=== PATIENT | male | born 2005 | race Caucasian/White ===

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

== ENCOUNTER 2025-03-01 08:22 | Emergency (ER) | payer OTHER, SELFPAY ==
--- NOTE | ~2025-03-01 | XR_ITS ---
EXAMINATION: XR CHEST CLINICAL INFORMATION: chest pain COMPARISON: 04/27/2020. TECHNIQUE: 2 views of the chest were obtained. FINDINGS: The cardiac, hilar, and mediastinal contours are normal. The lungs are clear bilaterally. There is no pneumothorax or pleural effusion. There is no focal osseous or soft tissue abnormality. XR/XR chest 2V IMPRESSION: Normal chest. Electronically signed by: Kushal Morales MD 03/01/2025 09:33 AM EDT
--- NOTE | 2025-03-01 08:24 | ECG_ITS ---
Test Reason : CP Blood Pressure : */* mmHG Vent. Rate : 77 BPM Atrial Rate : 77 BPM P-R Int : 134 ms QRS Dur : 88 ms QT Int : 364 ms P-R-T Axes : 13 55 20 degrees QTcB Int : 411 ms Normal sinus rhythm Normal ECG When compared with ECG of 26-Apr-2020 21:47, ST no longer depressed in Lateral leads Referred By: Generic ED Physician Electronically Signed By: LISY RAPHAEL
[2025-03-01 08:53] VITALS: BP 137/100; PULSE 75; RESP 12; TEMP 36.8; O2SAT 99; BMI 26.9
--- NOTE | 2025-03-01 08:57 | ED_ITS ---
HPI - General Adult General Chief complaint: Arrhythmia/Palpitations Stated complaint: Chest pain, heart palpitations Time Seen by Provider: 03/01/25 08:52 Source: patient and family (patient's mother) Mode of arrival: ambulatory Limitations: no limitations History of Present Illness ED Provider: Korin Mercado PA-C HPI narrative: Patient is a 19 year old assigned male at with a history of SVT presenting to the emergency department with concerns of intermittent chest pain and palpitations. He reports experiencing a 10 to 15 minute episode of left-sided chest pain and palpitations around 9 PM last night that resolved without any intervention. He reports associated dizziness, sweating and SOB that has also resolved. He reports experiencing these episodes of chest pain and palpitations that resolve spontaneously intermittently, sometimes once per month. He reports a history of cardiac issues and has experienced similar symptoms in the past for which he was evaluated by a oxygraph operator. He is not currently followed by a clinical research specialist. He denies current dizziness, headaches, changes to vision, chest pain, palpitations, shortness of breath, nausea/vomiting, fever/chills, or abdominal pain. Related Data Home Medications ?Medication ?Instructions ?Recorded ?Confirmed No Known Home Meds 03/17/22 03/17/22 Allergies Allergy/AdvReac Type Severity Reaction Status Date / Time No Known Allergies Allergy Verified 03/01/25 08:58 Review of Systems 2 Constitutional: Constitutional: Reports as per HPI Eyes: Eyes: Reports as per HPI ENT: Reports as per HPI Cardiovascular: Cardiovascular: Reports as per HPI Respiratory: Respiratory: Reports as per HPI Gastrointestinal: Gastrointestinal: Reports as per HPI Genitourinary: Genitourinary: Reports as per HPI Musculoskeletal: Musculoskeletal: Reports as per HPI Integumentary/Breasts: Skin/Breast: Reports as per HPI Neurologic: Reports as per HPI Psychiatric: Psychiatric: Reports as per HPI Endocrine: Endocrine: Reports as per HPI Hematologic/Lymphatic: Hematologic/Lymphatic: Reports as per HPI Allergic/Immunologic: Allergic/Immunologic: Reports as per HPI [facility] Past Medical History Attestation statement: The following information was validated with the patient. (all information validated with the patient's mother) Source: old records reviewed, obtained from family (patient's mother provided additional history and confirmed the history provided by the patient. ) and nursing notes reviewed Social History Social History Alcohol intake: current Alcohol intake frequency: 0-2 drinks per day Alcohol type: hard liquor Smoked in Last 30 Days: No Use of substances other than those prescribed or required for medical reasons: No Advance Directives: No Advance Directives Information Provided: No Do you have a plan to hurt others: No Plan Physical Exam ED Vital Signs: Vital Signs - 24 hr 03/01/25 08:53 03/01/25 09:01 03/01/25 11:41 Temperature 98.3 F 98.3 F 97.5 F Pulse Rate 75 75 66 Respiratory Rate 12 12 19 Blood Pressure 137/100 H 137/100 H 141/96 H Pulse Oximetry 99 99 100 Oxygen Delivery Method Room Air Room Air Room Air 03/01/25 12:33 Temperature 0 F L Pulse Rate 71 Respiratory Rate 18 Blood Pressure 131/86 Pulse Oximetry 97 Oxygen Delivery Method Room Air BMI result Body Mass Index 26.9 Const General: cooperative, no acute distress, alert and awake Nutritional Appearance: well nourished Orientation/consciousness: patient oriented x3 HENMT Head: Yes normal to inspection and Yes atraumatic Ears: hearing grossly normal bilaterally and external ears normal General nose exam: Normal external nose present, no nasal discharge noted and no epistaxis Face and sinus: Yes normal facial exam, No abrasion and No laceration Mouth: Normal oral and palatal mucosa present, no drooling and no muffled voice Eyes General: appearance normal, both eyes and all related structures Periorbital: periorbital findings normal Eyelids: Yes eyelids normal Conjunctivae: conjunctivae normal Pupils: Equal, round and reactive pupils present EOM: EOMs intact bilaterally Neck Neck: Yes normal visual inspection and Yes full ROM Resp Effort & Inspection: normal respiratory effort and able to speak in complete sentences Auscultation: clear to auscultation bilaterally Cardio Rate: regular rate Rhythm: regular rhythm Neuro General: patient oriented x3, moves all extremities and CN's II-XI intact bilaterally Cranial nerves: Yes Equal, round and reactive pupils present Cognition (Neuro): normal cognition Extrem General: Yes normal to inspection, Yes full ROM and Yes capillary refill normal Psych Appearance: grossly normal Mental Status: mental status grossly normal Affect: normal affect Attitude: cooperative Thought process: Normal thought process present Thought content: Normal thought content present Insight: Good insight present (Psych) Procedures Procedure Narrative Procedure Narrative: EMERGENCY ULTRASOUND INTERPRETATION-Limited Echocardiography This study was ordered, performed, and interpreted by myself. The study reveals: Impression: NORMAL LV FUNCTION, NO RV DYSFUNCTION, NO PERICARDIAL EFFUSION, no gross structural abnormalities] Emergent Cardiac for Indication: Views Used: PLAX, PSSA, A4, SX, IVC Pericardial Effusion/Tamponade Findings: NONE RV Dilation (> LV diam in 4ch apical): NONE Global LV Fxn: NORMAL IVC Dilation and Resp Variation: NORMAL Performed by: MD Jerrell Images were stored CPT:31869 Medical Decision Making Medical Decision Making MDM Narrative: Patient is a 19 year old assigned male at with a history of SVT presenting to the emergency department with concerns of intermittent chest pain and palpitations. Patient's physical exam was unremarkable. Patient's blood work was unremarkable. Patient's EKG was unremarkable. Patient's chest x-ray showed no acute process. I performed a bed side echocardiogram with my attending physician, Dr. Yogesh Allan, as noted in the procedure note. Echocardiogram was reassuring for no acute process. I explained my physical exam findings as well as all test results to the patient and the patient's mother. I answered all questions asked by the patient and the patient's mother. I am suspicious the patient continues to have episodes of SVT which he is self converting out of. Patient told he should follow up with a clinical research specialist for probable holter monitoring. I stressed the importance of the patient taking his medication as directed (either prescribed or as the over the counter packaging recommends). I stressed the importance of the patient following up with his primary care provider and a clinical research specialist. I stressed the importance of the patient returning to the emergency department immediately if his symptoms were to worsen or if he were to develop any dizziness, shortness of breath, difficulty breathing, chest pain, blurry vision, loss of vision, nausea, vomiting, abdominal pain, fever, chills, back pain, or any other complaints. Patient and the patient's mother verbalized agreement and understanding with this treatment plan and discharge. Patient told to avoid stimulants and other cardiac activating substances / medications. Differential Diagnosis Differential Diagnoses: The differential diagnosis associated with the presentation includes SVT Palpitations Admission/Observation Consideration of admission/observation: Escalation of care including admission/observation considered Patient would have been admitted to the hospital had his work up had any findings where hospital admission was appropriate and his clinical presentation warranted hospital admission. Lab Data [facility] Lab Attestation statement: I reviewed the patient's lab results. My interpretation of these results are in the MDM Rationale portion of this note. 03/01/25 09:13 03/01/25 09:13 Labs: Lab Results 03/01/25 03/01/25 Range/Units 09:13 11:10 WBC 7.1 (4.8-10.8) X10*3/uL RBC 5.28 (4.60-5.80) X10*6/uL Hgb 15.4 (14.0-18.0) g/dl Hct 42.9 (42.0-52.0) % MCV 81.3 (80.0-98.0) fL MCH 29.2 (27.0-33.0) pg MCHC 35.9 (31.0-36.0) g/dl RDW 11.4 (11.0-16.0) % Plt Count 271 (160-400) X10*3/uL MPV 9.9 (9.4-12.4) fL Immature Gran % (Auto) 0.1 (0.0-0.4) % Neut % (Auto) 64.5 (45-73) % Lymph % (Auto) 26.4 (20-40) % Kent % (Auto) 6.4 (2-11) % Eos % (Auto) 2.3 (0-4) % Baso % (Auto) 0.3 (0-2) % Lymph # (Auto) 1.9 (1.2-4.9) X10*3/uL Kent # (Auto) 0.5 (0.1-1.2) X10*3/uL Eos # (Auto) 0.2 (0.0-0.4) X10*3/uL Baso # (Auto) 0.0 (0.0-0.2) X10*3/uL Abs Immat Gran (auto) 0.01 (0.00-0.03) X10*3/uL Absolute Neuts (auto) 4.6 (2.0-8.3) x10*3/uL Absolute Nucleated RBC 0.000 (0.0-0.012) X10*3/uL Nucleated RBC % (auto) 0.0 (0.0-0.2) /100WBC Sodium 141 (135-145) mmol/L Potassium 3.5 (3.3-5.1) mmol/L Chloride 107 (96-108) mmol/L Carbon Dioxide 27 (22-29) mmol/L Anion Gap 11 L (12-20) BUN 13 (9-16) mg/dL Creatinine 0.87 (0.5-1.4) mg/dL Estim Creat Clear Calc 129.9 Estimated GFR > 60 Random Glucose 86 (60-115) mg/dL Calcium 9.6 (8.4-10.2) mg/dL Magnesium 2.0 (1.6-2.6) mg/dL Total Bilirubin 0.6 (0.0-1.0) mg/dL AST 29 (5-37) U/L ALT 28 (0-40) U/L Alkaline Phosphatase 75 (39-117) U/L Troponin I High Sens 2.9 < 2.7 (<3.5-35.0) ng/L Total Protein 7.9 (6.5-8.0) g/dL Albumin 5.1 H (3.5-5.0) g/dL Independent Interpretation I performed an independent interpretation of an: EKG and Plain X-Ray Interpretation: My interpretation is in agreement with the radiologist's impression of this imaging study. L EXAMINATION: XR CHEST CLINICAL INFORMATION: chest pain COMPARISON: 04/27/2020. TECHNIQUE: 2 views of the chest were obtained. FINDINGS: The cardiac, hilar, and mediastinal contours are normal. The lungs are clear bilaterally. There is no pneumothorax or pleural effusion. There is no focal osseous or soft tissue abnormality. XR/XR chest 2V IMPRESSION: Normal chest. Electronically signed by: Kushal Morales MD 03/01/2025 09:33 AM EDT Dictated By: Kushal Morales MD Signed By: Electronically signed by Kushal Morales MD 03/01/25 0933 I independently interpreted this EKG and am in agreement with the below findings: Vent. Rate: 77 BPM Atrial Rate: 77 BPM P-R Int: 134 ms QRS Dur: 88 ms QT Int: 364 ms P-R-T Axes: 13 55 20 degrees QTcB Int: 411 ms Normal sinus rhythm Normal ECG DD/ 0827 Radiology Impression Discussion of test interpretation with radiology: I have reviewed the radiologist's reading. Independent Historian Clinical information obtained from an independent historian. History obtained from or confirmed by: Parent (patient's mother provided additional history and confirmed the history provided by the patient. ) External Record Review External record reviewed: Inpatient record ([facility] inpatient notes from 04/27/2020 (admission for SVT)) Discharge Plan Discharge Clinical Impression: Palpitations Patient Disposition: Home, Self-Care Instructions: Heart Palpitations (DC) Additional Instructions: Your work up today is reassuring there is no EMERGENT process going on at this time however, given your cardiac history, you should follow up with a new (adult) clinical research specialist. IF you are prescribed home medications and/or you are taking over the counter medications at home - it is very important you continue to do so as prescribed / directed unless told otherwise. Follow up with your primary care provider. Return to the emergency department immediately if your symptoms worsen or if you develop any numbness, tingling, dizziness, shortness of breath, difficulty breathing, chest pain, blurry vision, loss of vision, nausea, vomiting, abdominal pain, fever, chills, back pain, or any other complaints. Please see the information below about our Patient Portal. If you are not yet enrolled in the [facility] Patient Portal, you will receive an enrollment email invitation following your visit to any [facility] setting. You may also self-enroll in the Patient Portal by visiting our website: [email or web address] The following information is required to access the Patient Portal: - Your [facility] Medical Record Number - Your personal home email address (must match what is in your electronic medical record, Registration staff can assist with this) - Name - Date of Capabilities of the Patient Portal: - Message some providers - View upcoming appointments - Access your health summary, medical history, and visit history - View current conditions and allergies - View procedure and lab results - View your medications, including guidelines, side effects, and precautions - Complete pre-appointment questionnaires requested by your provider - Ready summary reports of your office visits and procedures To access the Patient Portal Mobile [employer], follow these directions: - Search [employer] in the Neris Store or [employer] Store - Download the Neris - Search for [facility] - Enter your login/password Prescriptions: No Action No Known Home Meds Referrals: [facility] [Provider Group] Referral Note: Call to establish and follow up with a clinical research specialist. iRchard Shanks MD [Primary Care Provider, Internal Medicine] Interventions: ED Discharge Assessment Last Done: 03/01/25 12:33 Discharge Date/Time: 03/01/25 12:34 Print Language: Spanish
[2025-03-01 09:01] VITALS: BP 137/100; PULSE 74; PULSE 75; RESP 12; TEMP 36.8; O2SAT 99
--- NOTE | 2025-03-01 09:17 | PC.NURSE ---
19 M presents to ED with CP and palpitations that are intermittent and have been going on for a while. Pt denies any SOB at this time, does become SOB with episodes of palpitations, hx asthma and preiviously has seen a development intern. A+Ox4, calm, cooperative, and ambulatory. Pt c/o /10 pain across chest, no other complaints. RR even and unlabored.
[2025-03-01 09:18] LABS: MANUAL DIFF FLAG NO
[2025-03-01 09:23] LABS: Hematocrit 42.9 % (42.0-52.0); Hemoglobin 15.4 g/dl (14.0-18.0); Imm Gran Abs Auto 0.01 X10*3/uL (0.00-0.03); Imm Gran Pct Auto 0.1 % (0.0-0.4); Lymphocytes Absolute Auto 1.9 X10*3/uL (1.2-4.9); Mean Corpuscular HGB Conc 35.9 g/dl (31.0-36.0); Mean Corpuscular Hemoglobin 29.2 pg (27.0-33.0); Mean Corpuscular Volume 81.3 fL (80.0-98.0); NRBC Abs Auto 0.000 X10*3/uL (0.0-0.012); NRBC Pct Auto 0.0 /100WBC (0.0-0.2); Platelet Count 271 X10*3/uL (160-400); Red Blood Count 5.28 X10*6/uL (4.60-5.80); White Blood Count 7.1 X10*3/uL (4.8-10.8)
[2025-03-01 09:40] LABS: Alanine Aminotransferase 28 U/L (0-40); Albumin Level 5.1 g/dL (3.5-5.0); Alkaline Phosphatase 75 U/L (39-117); Anion Gap 11 (12-20); Aspartate Amino Transferase 29 U/L (5-37); Blood Urea Nitrogen 13 mg/dL (9-16); Calcium 9.6 mg/dL (8.4-10.2); Carbon Dioxide 27 mmol/L (22-29); Chloride 107 mmol/L (96-108); Creatinine Clr Calc Pharmacy 129.9; Estimated Glomerular Filt Rate > 60; Magnesium 2.0 mg/dL (1.6-2.6); Potassium 3.5 mmol/L (3.3-5.1); Sodium 141 mmol/L (135-145); Total Protein 7.9 g/dL (6.5-8.0)
[2025-03-01 09:43] LABS: Troponin-I High Sensitivity 2.9 ng/L (<3.5-35.0)
--- OUTSIDE RECORDS SUMMARY | 2025-03-01 10:04 | XMS_ITS | Clinical Summary ---
Author Organization [facility] Address [address] [place] [phone] Phone Care Team Providers Care Paper Production Engineer Name Role Phone Nitin Lugo MD Primary Care Provider [phone] Allergies No known active allergies Medications cetirizine (ZyrTEC Allergy) 10 MG tabletIndicatio ns:Cough Take 1 tablet (10 mg total) by mouth nightly as needed for allergies. 30 tablet 1 11/12/2021 Active Active Problems Problem Noted Date Diagnosed Date History of COVID-19 01/07/2022 Chest wall asymmetry 08/27/2021 Assessment & Plan (08/27/2021 8:55 AM EST): Prominent left rib, likely from continuing exercising following left hand finger fracture, causing assymetric muscle hypertrophy. Recommended favoring left in exercises for next month, monitor, return if symptoms worsen or developing any cardiac symptoms such as palpitations or tachycardia. Injury of finger of right hand 08/11/2021 Overview (08/11/2021): Right hand, fifth finger Supraventricular tachycardia 04/29/2020 Overview (12/28/2021): See notes from 04/2020, presented to [facility] with tachycardia and CP, SVT noted on monitor, broke with Valsalva maneuver, admitted to [facility] PICU, no further events of SVT. Will f/u with Dr. Lopez. Had PH of palpitations noted in 2018. Dr. Lopez-no restriction on activity, recommended valsalva with further episodes, atenolol prn if vasalva does not abort episode, interested in ablation but will discuss and let Dr. Lopez know; Echo normal Assessment & Plan (08/27/2021 8:55 AM EST): Reports only having single subsequent episode of tachycardia about two months prior to this visit (06/2021), but resolved quickly with rest, did not require vagal maneuver. Unclear if it was SVT vs sinus tachycardia. Recommended follow up if he has any further episodes. Assessment & Plan (05/16/2020 9:21 AM EST): Was admitted to PICU last month. Was given atenolol 25 mg if it happens again. Seeing dr. Dennison. Knows how to use vagal maneuvers to slow it down. It it keeps happening he may need ablation Elevated liver enzymes 02/17/2019 Overview (02/20/2019): 02/2019: Mild : ALT = 65. Added on hepatic function panel: AST 55, Alk phos 153. Referred to nutrition and will repeat in 3 months and add Hepatitis panel at that time. (Mom's sister has FLD). Consider referral to weight management program, consider US if persists Assessment & Plan (05/30/2019 9:54 PM EST): Stable Assessment & Plan (02/21/2019 8:51 AM EDT): Discussed fatty liver will be seeing metrology technician Vitamin D deficiency 02/17/2019 Overview (02/17/2019): Rx was sent 01/24 for Vit D 2000 IU qd. 02/17/19: Vit D = 22 Assessment & Plan (05/16/2020 9:23 AM EST): Has not been taking it daily will restart Overweight 09/20/2017 Overview (09/20/2017): Counseled Assessment & Plan (01/24/2019 6:38 PM EDT): Worsening in past year. Goal is to keep current wt. Mom longtime Type 2 DM and now Type 1 (though not obese). Myopia, right 06/10/2016 Overview (09/20/2017): Has glasses but not usually wearing them Learning problem 12/18/2015 Overview (09/20/2017): On IEP now at [employer] and doing well. 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 Feliz at [facility]. No longer goes there and stopped counselling since he would not talk . Still gets very worried often. Sleeps well, gets along with friends. Discussed w/ Dr. Anne at [facility]. ....Not on Zoloft since summer. Assessment & Plan (05/16/2020 9:26 AM EST): Still has anxiety Discussed short term therapy and he will give it a try will refer to Assessment & Plan (05/30/2019 9:53 PM EST): Much improved. Did not continue the fluoxetine. Has been coming out of his shell this fall, talking more, less anxious. Assessment & Plan (02/21/2019 8:51 AM EDT): 10 mg fluoxitine seems to have some help with social anxiety. No side effects. No able to start therapy because he will not talk. Will increase to 20 mg Assessment & Plan (01/24/2019 6:37 PM EDT): Trial fluoxetine. SCARED: totals in 20s : Mom pos for social anxiety, Ganesh pos for separation anxiety. VERY quiet, mom does a lot of the talking for him and to him and he seems to depend on this. Assessment & Plan (09/20/2017 11:26 AM EDT): Not on any meds or seeing therapist. Ganesh will consider seeing [facility]. Assessment & Plan (03/30/2017 8:33 AM EDT): Off Zoloft since last year. Doing well off the med. Not seeing a counselor now. Attention-deficit hyperactiv ity disorder, predominantly inattentive type 09/11/2015 Overview (09/20/2017): Inattentive ADD per on mom and teachers' [place]. Psychiatrist, Dr. Herbert Feliz at [facility] started methylphenidate 5mg tid. Stopped therapy since Ganesh would not talk. Had med refills changed to be done at [facility] for a period of time. --- 04/29/16 phone note: Ganesh is not taking his medication at this time, Ganesh has a IEP meeting on 05/05/16 at [facility] in [place] mom says he is doing good with out medication and she said his last report card had all A and one B. 06/10/16 - Returned to taking methylphenidate 5mg AM and Noon ... Did well on med 5d/wk only for school 03/15/17: TC to mom. Ganesh feels that he has been fine off the med over the summer and does not want to re-start it. Plan: Will hold on med and recheck by phone in 4 weeks about how school is going. 09/20/17 - More distractible - will have trial of Concerta. Assessment & Plan (05/16/2020 9:24 AM EST): Doing better with this since going to [employer] has an IEP Assessment & Plan (01/24/2019 6:39 PM EDT): Did well in 8th grade. Suspect anxiety is the bigger issue. Assessment & Plan (03/30/2017 8:34 AM EDT): Off Ritalin 5mg since 01/2017. Doing well. Focusing well now w/o meds. Resolved Problems Problem Noted Date Diagnosed Date Resolved Date Costochondritis, acute 09/27/201809/27 Overview (09/27/2018): Ibuprofen 600 mg by mouth (withfood) every 6 hours for pain Palpitations 04/29/2018 12/28/2021 Overview (07/02/2018): High heartrate noted during gym 04/2018 Referred for EKG and cardiology evaluation Seen by cardiology 05/2018 - recommended event monitor, no restrictions (See cardiology note of 06/2018 re: no further palpitations. Never went for Holter.) Assessment & Plan (02/21/2019 8:52 AM EDT): Evaluated by cardiology. Had another episode while runny. Self resolved after stopping exercsie. He feels it is related to anxiety. Can monitor for now Assessment & Plan (01/24/2019 6:39 PM EDT): Stable per cardiology, had recent visit. Assessment & Plan (05/12/2018 9:38 AM EST): Chest pain has recurred with palpitations. Will expedite getting cardiology genaro rae, Assessment & Plan (04/29/2018 10:44 AM EDT): Recommend EKG at [facility] Recommend cardiology evaluation No specific restrictions, but stop activity if any further symptoms Headache 05/13/2017 09/20/2017 Overview (05/13/2017): Recurrent headaches - beginning around summer/fall 2016. Possible migraine 05/2017 Assessment & Plan (05/13/2017 8:37 AM EST): Possible migraine today. Recommend increase hydration, take ibuprofen for bad headache 600 mg up to every 6 hours, look for possible triggers. Consider Migrelief (magnesium and Vitamin B2 twice daily) Return in one month for recheck if not improving Bronchospasm 06/10/2016 05/16/2020 Overview (06/07/2017): 06/10/2016 Recurrent cough yanelis in winter - occ uses albuterol before sports Assessment & Plan (09/20/2017 11:27 AM EDT): Stable w/o meds this winter Constipation 09/03/2015 01/24/2019 Overview (06/07/2017): 09/03/2015 11/25/16: continues on Miralax but has flare-ups if stopped. Crampy pain due to constipation today Assessment & Plan (09/20/2017 11:37 AM EDT): Taking occasional Miralax Immunizations Immunization Administration Dates Next Due COVID-19 Pfizer, monovalent, 12+ years 1 DTaP 09/07/2007, 5,01/02/2004,10/15,2003 H1N1 08/22/2009 HPV Vaccine 9 Valent 06/10/2016,05/16/2015 Hep A, ped/adol 05/16/2020 Hep B, ped/adol 04/02/2004,2003,2003 Hib (PRP-T) 10/13/2004, 4,2003,08/21 IPV 09/07/2007, 5,2003,08/21 Influenza 08/22/2009,09/07/2007,07/18/2004 Influenza, injectable, quadr ivalent, preservative free 05/16/2015,05/02/2014,04/12/2013 Influenza, injectable, trivalent 05/02/2012 MMR 09/07/2008,10/13/2004 Meningococcal Conj (Menactra) MCV4P 05/16/2020,1 07/16/2014 Pneumococcal Conjugate 10/13/2004,2003,2003,08/21 Tdap 05/16/2015 Varicella 09/07/2008,07/18/2004 Family History Relation Name Status Comments Cousin 1 Alive Maternal Cousin s: Healthy Cousin 2 Alive Paternal Cousin s: Healthy Father Alive Father: Healthy Father's Brother Alive Paternal Un apple: Healthy Father's Sister Alive Paternal Aun t: Learning disability, ADHD Maternal Grandfather Materna l Uncle: Hypertension Maternal Grandmother Alive Materna l Aunt: Hypertension, Diabetes Mother Alive Mother: (on bld pressure meds), Mental illness, Migraine, Diabetes II (on med) Other Alive Siblings: One s ister Learning disability, dyslexia, autism Paternal Grandfather Alive Pat GFa ther: Healthy Paternal Grandmother Alive Pat GMo ther: AIDS (stable), Depression Social History Tobacco Use Types Packs/Day Years Used Date Smoking Tobacco: Never Smokeless Tobacco: Never Tobacco Cessation:Counseling Given: Yes Alcohol Use Standard Drinks/Week Comments No 0 (1 standard drink = 0.6 oz pur e alcohol) Hunger/Food Answer Date Recorded In the last 12 months, did y ou or your family ever eat less than you felt you should because there wasn't enough money for food? No 05/16/2020 Stable Housing Answer Date Recorded Are you worried that in the next 2 months you may not have stable housing? No 05/16/2020 Transportation Concerns Answer Date Rec orded In the last 12 months, have you or your family ever had to go without healthcare because you didn't have a way to get there? No 05/16/2020 Hazards in Home Answer Date Recorded Think about the place you li ve. Do you have problems with any of the following? Pests (mice or roaches), mold, no/not working smoke detectors, water leaks, no window guards. Yes 2019 Financing Utilities Answer Date Recorde d In the last 12 months, has t he electric, gas, oil, or water company threatened to shut off your services in your home? No 05/16/2020 Safety at Home Answer Date Recorded Are you or your family worried about feeling saf e in your home? Yes 05/16/2020 Outside Support Answer Date Recorded Do you feel that you need mo re support from other people or programs to help you care for yourself or your family? No 05/16/2020 Understanding Health Concerns Answer Da te Recorded Do you need help understandi ng your or your child's healthcare needs (diagnosis, medications, plan, etc.)? No 05/16/2020 Financing Health Concerns Answer Date R ecorded In the last 12 months, was t here a time when your child needed to see a doctor or get medications or supplies but could not because of cost? No 05/16/2020 Missing School or Work Answer Date Lee rded Did you or your child miss s chool or work because of a health problem that could have been avoided? No 05/16/2020 Sex and Gender Information Value Date Recorded Sex Assigned at Male 06/13/2024 11:22 PM EST Legal Sex Male 5:20 PM EST Gender Identity Male 06/13/2024 11:22 PM EST Sexual Orientation Choose not to answer 06/21/20 24 1:14 PM EST Last Filed Vital Signs Vital Sign Reading Time Taken Comments Blood Pressure 113/70 10/17/2021 9:49 AM EDT Pulse 117 08/19/2022 8:51 AM EST Temperature 37.2 C (99 F) 08/19/2022 8:51 AM EST Respiratory Rate 24 09/27/2018 3:37 PM EDT Oxygen Saturation 97% 08/19/2022 8:51 AM EST Inhaled Oxygen Concentration - - Weight 76 kg (167 lb 9.6 oz) 10/17/2021 9:49 AM EDT Height 170.2 cm (5' 7 ) 10/17/2021 9:49 AM EDT Body Mass Index 26.25 10/17/2021 9:49 AM EDT Plan of Treatment Health Maintenance Due Date Last Done Comments Men B Vaccine (1 of 2 - Standard) 2019 Hepatitis A Vaccines (2 of 2 - 2-dose series) 11/13/2020 05/16/2020 COVID-19 Vaccine (2 - 2023-2 5 season) 2024 03/27/2021 Influenza Vaccines (#1) 2025 05/16/20, 05/02/2014, 04/12/2013, Additional history exists DTaP,Tdap,and Td Vaccines (7 - Td or Tdap) 05/16/2025 05/16/2015, 09/07/2007, 01/16/2005, Additional history exists Hepatitis B Vaccines Completed 04/02/2004, 2003, 2003 HIB Vaccines Completed 10/13/2004, 12/05, 2003, Additional history exists Pneumococcal Vaccine Completed 10/13/2004, 04/02/2004, 2003, Additional history exists IPV Vaccines Completed 09/07/2007, 07/05, 2003, Additional history exists MMR Vaccines Completed 09/07/2008, 10/13/2004 Varicella Vaccines Completed 09/07/2008, 07/18/2004 HPV Vaccines Completed 06/10/2016, 05/16/2015 Meningococcal Vaccine Completed 05/16/2020, 015 Insurance [facility] Care Teams Paper Production Engineer Relationship Specialty Start Date End Date Nitin Lugo MD [address] [place] [address] 2 [place], [place] [id number] PCP - General Pediatrics 03/26/21
--- OUTSIDE RECORDS SUMMARY | 2025-03-01 10:04 | XMS_ITS | Encounter Summary ---
Author Organization [facility] Address [address] [facility] [address] [place] [address] Phone Care Team Providers Care Manager Ship Name Role Phone Luke Levine MD Primary Care Provider [phone] Nitin Lugo MD Primary Care Provider [phone] Encounter Details Date Type Department Care Team (Latest Contact Info) Description 04/29/2018 Transcribe Orders Virtual Department [address] [place] [address] Luke Ball MD [address] [address] [email or web address] Palpitations (Primary Dx) Social History Tobacco Use Types Packs/Day Years Used Date Smoking Tobacco: Never Assessed Sex and Gender Information Value Date Recorded Sex Assigned at Male 03/09/2024 9:49 AM EDT Legal Sex Male 8:44 PM EDT Gender Identity Male 03/09/2024 9:49 AM EDT Sexual Orientation Straight 03/09/2024 9: 49 AM EDT documented as of this encounter Plan of Treatment Scheduled Orders Name Type Priority Associated Diagnoses Orde r Schedule ECG 12-LEAD ECG Routine Palpitations 1 Occurrences starting 04/29/2018 until 04/29/2019 documented as of this encounter Visit Diagnoses Diagnosis Palpitations- Primary documented in this encounter Care Teams Manager Ship Relationship Specialty Start Date End Date Luke Levine MD [address] [place] [phone] [email or web address] PCP - General 04/20/17 08/19/21 Nitin Lugo MD [address] [place] [address] 2 [place] [address] PCP - General Pediatrics 08/20/21 documented as of this encounter Additional Source Comments The information contained in this document represents components of the legal health record. It is not the complete legal health record.[facility]
--- OUTSIDE RECORDS SUMMARY | 2025-03-01 10:04 | XMS_ITS | Encounter Summary ---
Author Organization [facility] Address [address] [place] [address] Phone Care Team Providers Care Pipelines Supervisor Name Role Phone Nitin Lugo MD Primary Care Provider [phone] Encounter Details Date Type Department Care Team (Late st Contact Info) Description 02/10/2017 Conversion Encounter [facility] Pediatrics - [address], [address] [place] [address] Luke Levine MD Social History Tobacco Use Types Packs/Day Years Used Date Smoking Tobacco: Never Assessed Sex and Gender Information Value Date Recorded Sex Assigned at Male 06/13/2024 11:22 PM EST Legal Sex Male 5:20 PM EST Gender Identity Male 06/13/2024 11:22 PM EST Sexual Orientation Choose not to answer 06/21/20 24 1:14 PM EST documented as of this encounter Plan of Treatment Not on file documented as of this encounter Visit Diagnoses Not on filedocumented in this encounter Care Teams Pipelines Supervisor Relationship Specialty Start Date End Date Nitin Lugo MD [address] [place] [address] [address] [place] [address] PCP - General Pediatrics 03/26/21 documented as of this encounter
--- OUTSIDE RECORDS SUMMARY | 2025-03-01 10:04 | XMS_ITS | Clinical Summary ---
Author Organization [facility] Address [address] [facility] [address] [place] [address] Phone Care Team Providers Care Family Practice Md Name Role Phone Nitin Lugo MD Primary Care Provider [phone] Allergies No known active allergies Medications cholecalciferol (VITAMIN D3) 2,000 unit capsule Take 2,000 Int'l Units by mouth daily. 04/25/2021 Active albuterol 90 mcg/actuation inhaler INHALE 2 PUFFS INTO THE LUNGS BY MOUTH UP TO EVERY 4 HOURS NEEDED FOR COUGH OR WHEEZE 04/25/2021 Active Social History Tobacco Use Types Packs/Day Years Used Date Smoking Tobacco: Never Smokeless Tobacco: Never Education Answer Date Recorded Are you interested in more education? Not on day e 10/30/2022 Are you concerned about learning? Not on file 10/30/2022 No 10/30/2022 No 10/30/2022 Digital Access Answer Date Recorded No 11/30/2022 No 11/30/2022 No 11/30/2022 Reliable internet access at home? Not on file 11/30/2022 Device with a working camera? Not on file Sex and Gender Information Value Date Recorded Sex Assigned at Male 03/09/2024 9:49 AM EDT Legal Sex Male 8:44 PM EDT Gender Identity Male 03/09/2024 9:49 AM EDT Sexual Orientation Straight 03/09/2024 9: 49 AM EDT Last Filed Vital Signs Vital Sign Reading Time Taken Comments Blood Pressure - - Pulse - - Temperature - - Respiratory Rate - - Oxygen Saturation - - Inhaled Oxygen Concentration - - Weight 81.6 kg (180 lb) 08/20/2021 2:25 PM EST Height 175.3 cm (5' 9 ) 08/20/2021 2:25 PM EST Body Mass Index 26.58 08/20/2021 2:25 PM EST Plan of Treatment Health Maintenance Due Date Last Done Comments DEPRESSION SCREENING 2015 SMOKING Hx and SMOKELESS TOBACCO SCREENING 2016 MENINGOCOCCAL VACCINES (B) (1 of 2 - Standard) 2019 ADOLESCENT UNIVERSAL LIPID SCREENING 2020 05/16/2020, 02/17/2019 HEPATITIS A VACCINES (2 of 2 - 2-dose series) 11/13/2020 05/16/2020 HEPATITIS C SCREENING 2021 HIV ONE-TIME SCREENING (18-65 YEARS) 2021 COVID-19 VACCINE (2 - season) 2024 04/02/2021 Adult Td,Tdap Booster 05/16/2025 05/16/2015 COMBINED DTaP,Tdap,Td (7 - Td or Tdap) 05/16/2025 05/16/2015, 09/07/2007, 01/16/2005, Additional history exists HIB VACCINES Completed 10/13/2004, 12/05, 2003, Additional history exists PNEUMOCOCCAL VACCINES (0-49 years) Aged Out 10/13/2004, 04/02/2004, 2003, Additional history exists No longer eligible based on patient's age to complete this topic MMR VACCINES Completed 09/07/2008, 10/13/2004 HPV VACCINES Completed 06/10/2016, 05/16/2015 MENINGOCOCCAL VACCINES (ACWY) Completed 05/16/2020, 05/16/2015 Medical Devices Not on file Procedures Procedure Name Priority Date/Time Associated Diagnosis Comments LIPID PANEL Routine 05/16/2020 10:19 AM EST Vitamin D deficiency disease from Last 3 Months or Most Recently Relevant to Health Maintenance Results * (ABNORMAL) Lipid panel (05/16/2020 10:19 AM EST) HDL 41 mg/dL [facility] Comment: Interpretation <40 mg/dL: Low HDL cholesterol (major risk factor for CHD) Greater than or equal to 60 mg/dL: High HDL cholesterol ( negative risk factor for CHD) HDL - cholesterol is affected by a number of factors, e.g. smoking, excerise, hormones, sex and age. CHOLESTEROL 179(H) 0 - 169 mg/dL [facility] Comment: Pediatric Reference Ranges for 2 to 18 years Acceptable: Less than 170 mg/dL Borderline: 170 - 199 mg/dL High: Greater than or equal to 200 mg/dL TRIGLYCERIDES 225(H) 30 - 160 mg/dL [facility] LDL 93 50 - 129 mg/dL [facility] Comment: LDL levels in terms of risk for coronary heart disease: <100 mg/dL: Optimal 100-129 mg/dL: Near or above optimal 130-159 mg/dL: Borderline high 160-189 mg/dL: High >190 mg/dL: Very High CARDIAC RISK RATIO 4.4 3.4 - 5.0 [facility] Blood 05/16/2020 10:1 9 AM EST 05/16/2020 10:28 AM EST us Tiago Posadas MD LAB BLOOD ORDERABLES Final Result [facility] [address] [place] [address] from Last 3 Months or Most Recently Relevant to Health Maintenance Insurance [facility] [address] [place] [address] [place] [address] [place] [address] [place] [address] [place] [address] [place] [address] [place] [address] [place] [address] [address] [place] [address] [place] [address] [place] [address] [place] [address] [place] [address] [place] [address] [place] [address] [address] [place] [address] [facility]ILDREN[facility]S [facility] * Guarantor: CAROLEE [place] Account Type Relation to Patient Date of Phone Billing Address Personal/Family Mother [address] [place] [facility] * Guarantor: CAROLEE [place] Account Type Relation to Patient Date of Phone Billing Address Personal/Family Mother [address] [place] [facility] [place] [address] [place] [address] [place] [address] [address] [place] [address] [facility] * Guarantor: CAROLEE [place] Account Type Relation to Patient Date of Phone Billing Address Personal/Family Mother [address] [place], [place] [facility] * Guarantor: CAROLEE [place] Account Type Relation to Patient Date of Phone Billing Address Personal/Family Mother [address] [place] [facility] Care Teams Family Practice Md Relationship Specialty Start Date End Date Nitin Lugo MD [address] [place] [address], [facility] [address] [place], [place] [phone] PCP - General Pediatrics 08/20/21 Additional Source Comments The information contained in this document represents components of the legal health record. It is not the complete legal health record.[facility]
--- OUTSIDE RECORDS SUMMARY | 2025-03-01 10:04 | XMS_ITS | Encounter Summary ---
Author Organization [facility] Address [address] [address] Phone Care Team Providers Care Nursing Technician Name Role Phone Luke Levine MD Primary Care Provider [phone] Nitin Lugo MD Primary Care Provider [phone] Encounter Details Date Type Department Care Team (Late st Contact Info) Description 08/09/2017 Transcribe Orders [facility] [address] [place] [address] Lisa George MD [address] [place] [address] Acute pharyngitis, unspecified etiology (Primary Dx) Social History Tobacco Use Types [...] on file documented as of this encounter Procedures Procedure Name Priority Date/Time Associated Diagnosis Comments STREPTOCOCCUS, GROUP A CULTURE Routine 08/09/2017 11:23 AM EST Acute pharyngitis, unspecified etiology documented in this encounter Results * Streptococcus, Group A Culture (08/09/2017 11:23 AM EST) Specimen Source/ Description THROAT THROAT [facility] Special Requests None [facility] Culture/Test NEGATIVE FOR GRP A BETA STREPTOCOCCI [facility] Report Status 08/11/2017 FINAL [facility] Other (Throat) 08/09/2017 11 :23 AM EST 08/09/2017 12:33 PM EST us Lisa George MD MICROBIOLOGY - GENERAL ORDER YAEL Final Result [facility] [address] [place] [address] documented in this encounter Visit Diagnoses Diagnosis Acute pharyngitis, unspecified etiology- Primary documented in this encounter Care Teams Nursing Technician Relationship Specialty Start Date End Date Luke Levine MD [address] [place] [address] [email or web address] PCP - General 04/20/17 08/19/21 Nitin Lugo MD [address] [place] [phone] PCP - General Pediatrics 08/20/21 documented as of this encounter Additional Source Comments The information contained in this document represents components of the legal health record. It is not the complete legal health record.[facility]
[2025-03-01 11:35] LABS: Troponin-I High Sensitivity < 2.7 ng/L (<3.5-35.0)
[2025-03-01 11:41] VITALS: BP 141/96; PULSE 66; RESP 19; TEMP 36.4; O2SAT 100
[2025-03-01 12:33] VITALS: BP 131/86; PULSE 71; RESP 18; TEMP -17.7; TEMP 0; O2SAT 97
== END 2025-03-01 12:34 | disposition home or self-care (01) ==
PROVIDERS: Physician Assistant Medical; Emergency Provider Emergency Medicine; PCP Family Medicine
DX: R00.2 Palpitations (principal); I49.9 Cardiac arrhythmia, unspecified; R42 Dizziness and giddiness; R06.02 Shortness of breath; R07.89 Other chest pain
CPT/HCPCS: 36415; 71046; 80053; 83735; 84484; 85025; 93005; 99283; 99285

== ENCOUNTER → 2025-03-01 08:24 | Outpatient (BNV) | payer OTHER, SELFPAY | PROVIDERS: Emergency Provider Emergency Medicine; PCP Family Medicine; Visit Provider Internal Medicine | DX: R07.89 Other chest pain (principal) | CPT/HCPCS: 93010 ==

== ENCOUNTER → 2025-03-01 08:57 | Outpatient (BNV) | payer OTHER, SELFPAY | PROVIDERS: PCP Family Medicine; Visit Provider Radiology Diagnostic Radiology | DX: R07.9 Chest pain, unspecified (principal) | CPT/HCPCS: 71046 ==